=== PATIENT | female | born 1990 | race Caucasian/White ===

== ENCOUNTER 2019-10-06 20:57 | Emergency (ER) | payer OTHER, SELFPAY ==
--- NOTE | ~2019-10-06 | CT_ITS ---
EXAMINATION: CT brain wo con INDICATION: Headache COMPARISON: None TECHNIQUE: Standard unenhanced head CT. The dose-length product (DLP) was 605.33 mGy-cm. The mA was a djusted according to patient size. Iterative reconstruction technique was employed. FINDINGS: There is no intracranial hemorrhage, acute infarction, or abnormal mass lesion. The ventric les are normal. There is no abnormal mass effect or midline shift. The juarez-white matter differentiat ion is normal. The basal cisterns are patent. The orbits are normal. There is mild mucosal thickening of the paranasal sinuses. IMPRESSION: 1. No acute intracranial abnormality. Reviewed, dictated and finalized at location A. OR [employer]
[2019-10-06 21:01] VITALS: BP 122/59; PULSE 112; RESP 19; TEMP 36.1; O2SAT 98
--- NOTE | 2019-10-06 21:19 | ED.HA ---
HPI - Headache General Chief Complaint: Headache Stated Complaint: LUNDBERG/N/V Time Seen by Provider: 10/06/19 21:17 Source: patient and RN notes reviewed Mode of arrival: ambulatory Limitations: no limitations History of Present Illness HPI Narrative: Pt is a 29 y/o female with a Hx of migraines, who presents to the ED with c/o lt sided headache starting this morning. She notes that she woke up this morning with sinus pressure, sinus congestion, and sneezing. Pt states that her pain has since radiated into the lt side of her neck, face, and retro-orbital region. She notes that light aggravates her pain. Pt states that she developed nausea and vomiting around 15:00 this afternoon. She currently denies any vision changes, numbness, dysuria, hematuria, fever, cough, or ABD pain. MD elicited complaint: migraine Pertinent past history: migraines Onset description: gradually Location: left, facial, retro-orbital and down into neck Exacerbating factors: light Associated symptoms: nausea, vomiting and other (sinus congestion) Related Data Allergies Allergy/AdvReac Type Severity Reaction Status Date / Time No Known Allergies Allergy Verified 10/06/19 21:29 Review of Systems Review of Systems: Narrative: CONSTITUTIONAL: Denies fever, chills, or sweats. EYES: Denies visual changes, redness, or discharge. ENT: Reports sinus congestion. Denies rhinorrhea, sore throat, or otalgia. RESPIRATORY: Denies cough or dyspnea. GASTROINTESTINAL: Denies abdominal pain or diarrhea. Reports nausea and vomiting. GENITOURINARY: Denies dysuria or hematuria. MUSCULOSKELETAL: Denies back pain, joint pain, or myalgia. NEUROLOGIC: Reports lt sided headache. Denies numbness or weakness. All systems reviewed & are unremarkable except as noted in HPI and below PMFSH Past Medical History Medical History Migraines UTI (urinary tract infection) Surgical History Surgical History No significant past surgical history Social History Social History Smoking status: Never smoker Gender identity (if verbalized by the patient): Female Exam Narrative: Exam Narrative: GENERAL: Well-appearing, well-nourished, and in no acute distress. HEAD: Normocephalic, atraumatic. EYES: 3+ PERRLA and EOMI. ENT: Nares clear, no rhinorrhea or epistaxis. Mucous membranes dry. NECK: Supple. CHEST: Clear to auscultation. No respiratory distress. HEART: Regular rate and rhythm. No murmur heard. Normal peripheral pulses. ABDOMEN: Soft, nontender, nondistended, normal active bowel sounds. EXTREMITIES: Normal range of motion. No edema. SKIN: Warm, dry, no rash. NEURO: No focal deficits. Alert and oriented. EOMs intact without nystagmus. No facial droop/asymmetry noted bilaterally. Grimace intact. Intact sensation in face. Hearing intact bilaterally. Shoulder shrug intact. Strength 5/5 bilateral upper extremities. Strength 5/5 bilateral lower extremities. Reflexes 2+ patellar. Ambulatory with a narrow base, steady gait, no ataxia. Course Vital Signs Vital signs: Vital Signs Temperature 36.1 C L 10/06/19 21:01 Pulse Rate 112 H 10/06/19 21:01 Respiratory Rate 19 10/06/19 21:01 Blood Pressure 122/59 L 10/06/19 21:01 Pulse Oximetry 98 10/06/19 21:01 Temperature 36.1 C L 10/06/19 21:01 Pulse Rate 112 H 10/06/19 21:01 Respiratory Rate 19 10/06/19 21:01 Blood Pressure 122/59 L 10/06/19 21:01 Pulse Oximetry 98 10/06/19 21:01 MDM - Headache MDM Narrative Medical decision making narrative: The patient was evaluated in the emergency department for headache. Patient's headache pain was not sudden or maximal in onset. There are no focal deficits on exam. Subarachnoid hemorrhage is felt to be unlikely given the clinical symptoms and exam findings. There is no history of fever and neck is supple to evaluation without meningismu
[2019-10-06 21:47] LABS: Basophils Percent Auto 0.2 % (0.2-1.2); Eosinophils Absolute Auto 0.1 K/mm3 (0-0.3); Eosinophils Percent Auto 0.9 % (0-4.4); Hematocrit 42.6 % (37.0-47.0); Hemoglobin 14.3 g/dL (12.0-15.0); Immature Granulocyte Absolute 0.03 K/mm3 (0.00-0.031); Immature Granulocyte Percent A 0.4 % (0-0.5); Lymphocytes Absolute Auto 1.48 K/mm3 (0.9-3.2); Lymphocytes Percent Auto 17.5 % (18.3-44.2); Mean Corpuscular HGB Conc 33.6 g/dl (32-36); Mean Corpuscular Hemoglobin 30.8 pg (26-34); Mean Corpuscular Volume 91.6 fl (80-100); Mean Platelet Volume 10.8 fl (7.4-10.4); Monocytes Absolute Auto 0.6 K/mm3 (0.1-0.6); Monocytes Percent Auto 6.5 % (2.6-8.5); Neutrophils Absolute Auto 6.3 K/mm3 (1.3-6.7); Neutrophils Percent Auto 74.5 % (45.5-73.1); Platelet Count Result 259 k/mm3 (150-375); Red Blood Count 4.65 M/mm3 (4.2-5.4); Red Cell Distribution Width 12.2 % (11.5-14.5); White Blood Count 8.5 K/mm3 (4.5-10.0)
[2019-10-06 21:53] LABS: Add Urine Microscopic? YES; Appearance Urine Clear (Clear); Bacteria Urine Trace /hpf; Bilirubin Urine Negative (Negative); Blood Urine Negative (Negative); Color Urine Yellow (Yellow); Glucose Urine UA Negative (Negative); Ketones Urine 2+ mg/dL (Negative); Leukocyte Esterase Ur Negative LEU/UL (Negative); Mucus Urine Heavy /lpf; Nitrate Urine Negative (Negative); Protein Urine 1+ mg/dL (Negative); Specific Grav Ur 1.023 (1.001-1.035); Squamous Epithelial Cell Urine Few /hpf (Few); Urobilinogen Urine Negative mg/dL (<2.0); WBC Urine 0-3 /hpf
[2019-10-06 21:59] LABS: Blood Urea Nitrogen 13 mg/dL (7-17); Calcium 9.6 mg/dL (8.4-10.2); Carbon Dioxide 25 mmol/L (22-30); Chloride 100 mmol/L (98-107); Estimated CRCL calculation 105 ml/min; Estimated Glomerular Filt Rate > 60; Glucose 100 mg/dL (65-105); Sodium 139 mmol/L (137-145)
[2019-10-06] MEDS: MAGNESIUM SULF 2 GM/WATER 50ML 2 GM/50 ML BAG IVPB (22:06)
[2019-10-06] MEDS: METOCLOPRAMIDE HCL INJ 10 MG/2 ML VIAL IV PUSH (22:07)
[2019-10-06] MEDS: SODIUM CHLORIDE 0.9% IV 1,000 ML 999 ML IV CONT (22:07)
== END 2019-10-06 22:51 | disposition home or self-care (01) ==
PROVIDERS: Emergency Provider Emergency Medicine; PCP Internal Medicine
DX: G43.809 Other migraine, not intractable, without status migrainosus (principal); Z87.440 Personal history of urinary (tract) infections
CPT/HCPCS: 36415; 70450; 80048; 81001; 81025; 85025; 96374; 96375; 99284; J0131; J1100; J1200; J2765; J3475; J7030

== ENCOUNTER 2023-02-15 23:51 | Emergency (ER) | payer OTHER, SELFPAY ==
[2023-02-15 23:55] VITALS: BP 103/69; PULSE 93; RESP 19; TEMP 36.2; O2SAT 100
[2023-02-16] MEDS: ONDANSETRON HCL ODT 4 MG TABLET PO (00:39)
--- NOTE | 2023-02-16 00:49 | ED.HA ---
HPI - Headache General Chief Complaint: Headache <MICHAEL Carmona Last Filed: 02/16/23 01:47> Stated Complaint: migraine <MICHAEL Carmona Last Filed: 02/16/23 01:47> Time Seen by Provider: 02/16/23 00:09 <MICHAEL Carmona Last Filed: 02/16/23 01:47> History of Present Illness HPI Narrative: 32 year old female here for evaluation of migraine headache x 3 hours. Patient states that she has had a pressure behind her left eye all day today but over the past 4 hours the pressure worsened and is associated with nausea and vomiting. She does have a history of migraine headaches that feels very similar to her symptoms today but she was unable to keep down her migraine medicines which prompted her ED evaluation. She denies any fevers, chills, neck stiffness, visual changes, weakness or slurred speech. <MICHAEL Carmona Last Filed: 02/16/23 01:47> Related Data Allergies/Adverse Reactions: Allergies Allergy/AdvReac Type Severity Reaction Status Date / Time No Known Allergies Allergy Verified 10/06/19 21:29 <MICHAEL Carmona Last Filed: 02/16/23 01:47> Review of Systems Review of Systems: Gen.: Denies fevers or chills Eyes: Denies eye pain or visual change ENT: Denies congestion Respiratory: Denies shortness of breath or cough CV: Denies chest pain or palpitations GI: Denies abdominal pain nausea, emesis or diarrhea denies burning, urgency, frequency or hematuria Musculoskeletal: Denies back pain or muscle pain Neuro: reports migraine LUNDBERG. Denies numbness, tingling, weakness or focal weakness Skin: Denies rash Except as documented, all other systems reviewed and negative <MICHAEL Carmona Last Filed: 02/16/23 01:47> [facility] [place] Past Medical History Medical History: Medical History (Updated 02/17/23 @ 00:00 by Background Daemon) Migraines UTI (urinary tract infection) <MICHAEL Carmona Last Filed: 02/16/23 01:47> Surgical History Surgical History: Surgical History No significant past surgical history <Florencia Gardner PA-C - Last Filed: 02/16/23 01:47> Social History Social History: Social History Smoking status: Never smoker Gender identity (if verbalized by the patient): Female <Florencia Gardner PA-C - Last Filed: 02/16/23 01:47> Exam Narrative: APPEARANCE: uncomfortable appearing, holding hand over eyes to shield from light. EYES: EOMI, pupils are equal round and reactive to light. HEENT: Normocephalic, atraumatic, OMM RESPIRATORY: No respiratory distress Clear to auscultation bilaterally with no rhonchi wheezing or rales. CARDIOVASCULAR: Regular rate and rhythm without murmurs rubs or gallops. ABDOMINAL: Soft, nontender, nondistended, no rebound or guarding MUSCULOSKELETAL: Moves all extremities. No clubbing, cyanosis or edema. NEURO: Awake and alert. Following commands, speech normal, no focal deficits SKIN:: Warm, dry. No rashes lesions or abrasions PSYCHIATRIC: Normal affect/mood <Florencia Gardner PA-C - Last Filed: 02/16/23 01:47> Course [employer]/PA Physician Supervision This is a was performed by both a physician and an APC. I performed all aspects of the MDM as documented w/ the following additions: 32-year-old with history of migraines presenting with her typical headache. No red flags on exam. Given migraine cocktail with improvement in her symptoms. Discharged.All questions answered. Patient in agreement w/ disposition. <Horace Stovall MD - Last Filed: 02/17/23 06:33> Vital Signs Vital signs: Vital Signs Temperature 97.2 F L 02/15/23 23:55 Pulse Rate 93 02/15/23 23:55 Respiratory Rate 19 02/15/23 23:55 Blood Pressure 103/69 02/15/23 23:55 Pulse Oximetry 100 02/15/23 23:55 Oxygen Delivery Room A
[2023-02-16] MEDS: diphenhydrAMINE HCl INJ 50 MG/ML VIAL 12.5 MG IV PUSH (01:03)
[2023-02-16] MEDS: SODIUM CHLORIDE 0.9% IV 1,000 ML 999 ML IV CONT (01:03)
[2023-02-16] MEDS: PROCHLORPERAZINE EDISYLATE 10 MG/2 ML VIAL IV PUSH (01:03)
== END 2023-02-16 02:07 | disposition home or self-care (01) ==
PROVIDERS: Emergency Provider Physician Assistant; PCP Internal Medicine
DX: G43.909 Migraine, unspecified, not intractable, without status migrainosus (principal)
CPT/HCPCS: 96361; 96374; 96375; 99284; A9270; J0780; J1200; J7030